=== PATIENT | female | born 1975 | race Caucasian/White ===

== ENCOUNTER 2017-07-19 14:29 | Emergency (ER) | payer OTHER ==
[~2017-07-19] VITALS: Wt 61.2 kg
[~2017-07-19 14:29] MED LIST: AMOXICILLIN500 M2 PO; ANAPROX DS550 MG PO; ATARAX25 MG PO; ATIVAN1 MG PO; CEPHALEXIN500 M1 PO; CLARITIN10 MG PO; CLINDAMYCIN HC300 MG PO; DOXYCYCLINE HY100 M3 PO; FIORICET 325 MG1 TAB PO; FLAGYL500 MG PO; Fioricet 325 MG1 TAB PO; LIDEX0.05% T; MEDROL DOSEPAK4 MG PO; MOTRIN800 MG PO; NAPROSYN500 MG PO; NAPROXEN500 MG PO; NORCO 5-325 TA1 EACH PO; Nizoral 2%15 GM PO; PENICILLIN VK500 MG PO; PERCOCET 325 MG1 TA7 PO; PREDNICOT20 MG PO; PREDNISONE20 M1 PO; Peridex 473 ML473 ML PO; SEPTRA DS 800 M1 TAB PO; TRAMADOL HCL50 MG PO; VICODIN 5/500 505 MG PO; ZOFRAN ODT4 MG SL
[2017-07-19 15:09] LABS: BASO % 0.5 % (0.0-1.0); HEMATOCRIT 39.8 % (37.0-47.0); HEMOGLOBIN 13.3 g/dl (12.0-16.0); LYMPH # 1.3 10*3/uL (1.3-4.4); LYMPH % 31.8 % (27.0-41.0); MEAN CELL VOLUME 92.8 fl (81.0-99.0); MEAN CORPUSCULAR HGB CONC 33.4 g/dl (33.0-37.0); MEAN PLATELET VOLUME 10.4 fl (9.6-12.3); MONO # 0.4 10*3/uL (0.1-1.0); MONO % 10.7 % (3.0-9.0); NEUT # 2.3 10*3/uL (2.3-7.9); PLATELET COUNT AUTOMATED 167 10*3/uL (130-400); RED BLOOD COUNT 4.29 10*6/uL (4.10-5.10); RED CELL DISTRI WIDTH 13.2 % (0-14.5)
[2017-07-19 15:18] LABS: ACT PARTIAL THROMBO TIME 24.3 SECONDS (20.8-31.5)
[2017-07-19 15:24] LABS: ALBUMIN 3.8 gm/dl (3.1-4.5); ALKALINE PHOSPHATASE 92 U/L (45-117); BUN 12 mg/dl (7-24); CHLORIDE 108 mmol/L (98-107); CREATININE 0.62 mg/dL (0.55-1.02); SGOT/AST 17 IU/L (3-35); SGPT/ALT 21 U/L (12-78); SODIUM 141 mmol/L (136-145); TOTAL PROTEIN 7.2 gm/dL (6.4-8.2)
[2017-07-19 15:35] LABS: BILIRUBIN NEGATIVE (NEGATIVE); BLOOD 2+ (NEGATIVE); CLARITY SL CLOUDY (CLEAR); COLOR YELLOW (YELLOW); GLUCOSE NEGATIVE (NEGATIVE); KETONE NEGATIVE (NEGATIVE); LEUKO ESTERASE NEGATIVE (NEGATIVE); NITRITE NEGATIVE (NEGATIVE); PH 5.5 (5.0-9.0); SPECIFIC GRAVITY >= 1.030 (1.005-1.030); UROBILINOGEN 0.2 E.U./dl (0.2-1.0)
[2017-07-19 15:42] LABS: URINE AMPHETAMINES < 1000 (1000ng/ml); URINE BARBITURATES < 200 (200ng/ml); URINE BENZODIAZEPINES < 200 (200ng/ml); URINE CANNABINOIDS (THC) > 50 (50ng/ml); URINE COCAINE < 300 (300ng/ml); URINE METHADONE < 300 (300ng/ml); URINE OPIATES > 300 (300ng/ml)
[2017-07-19 15:43] LABS: BACTERIA 3+; WBC 0-2 wbc/hpf (0-5)
[2017-07-19 15:49] LABS: URINE PHENCYCLIDINE < 25 (25ng/ml)
[2017-07-19 18:51] VITALS: BP 117/75
== END 2017-07-19 18:55 | disposition home or self-care (01) ==
LOC: ED 14:29
PROVIDERS: Physician Assistant
DX: G43.909 Migraine, unspecified, not intractable, without status migrainosus (principal); R82.99 Other abnormal findings in urine; H57.8 Other specified disorders of eye and adnexa; H53.149 Visual discomfort, unspecified; F17.200 Nicotine dependence, unspecified, uncomplicated; Z91.040 Latex allergy status

== ENCOUNTER 2019-04-18 00:19 | Emergency (ER) | payer OTHER ==
[~2019-04-18] VITALS: Ht 157.4 cm; Wt 58.1 kg
[2019-04-18 00:19] VITALS: BP 139/82
[2019-04-18] MEDS ORDERED: VISTARIL50 MG PO (00:37)
[2019-04-18] MEDS ORDERED: TRIDERM454 GM T (00:42)
== END 2019-04-18 00:46 | disposition home or self-care (01) ==
LOC: ED 00:19
DX: L50.9 Urticaria, unspecified (principal); G43.909 Migraine, unspecified, not intractable, without status migrainosus; Z91.041 Radiographic dye allergy status; Z79.2 Long term (current) use of antibiotics; Z79.899 Other long term (current) drug therapy; Z87.891 Personal history of nicotine dependence

== ENCOUNTER 2022-02-06 07:01 | Emergency (ER) | payer OTHER ==
[~2022-02-06] VITALS: Wt 59.0 kg
[~2022-02-06 07:01] MED LIST changes: +TRIDERM454 GM T; +VISTARIL50 MG PO
[2022-02-06 07:11] VITALS: BP 123/82
[2022-02-06 08:04] LABS: BASO % 0.3 % (0.0-1.0); EOS % 0.3 % (1.0-4.0); HEMATOCRIT 33.6 % (37.0-47.0); LYMPH # 0.7 10*3/uL (1.3-4.4); LYMPH % 19.4 % (27.0-41.0); MEAN CELL VOLUME 91.1 fl (81.0-99.0); MEAN CORPUSCULAR HGB 29.8 pg (27.0-31.0); MEAN CORPUSCULAR HGB CONC 32.7 g/dl (33.0-37.0); MEAN PLATELET VOLUME 10.3 fl (9.6-12.3); MONO # 0.5 10*3/uL (0.1-1.0); MONO % 13.1 % (3.0-9.0); NEUT # 2.5 10*3/uL (2.3-7.9); NEUT % 66.6 % (47.0-73.0); PLATELET COUNT AUTOMATED 197 10*3/uL (130-400); RED BLOOD COUNT 3.69 10*6/uL (4.10-5.10); RED CELL DISTRI WIDTH 15.7 % (0-14.5); WHITE BLOOD COUNT 3.8 10*3/uL (4.8-10.8)
[2022-02-06 08:12] LABS: BUN 10 mg/dl (7-24); CHLORIDE 113 mmol/L (98-107); CREATININE 0.71 mg/dL (0.55-1.02); POTASSIUM 3.7 mmol/L (3.5-5.1); SODIUM 143 mmol/L (136-145)
[2022-02-06 08:13] LABS: ACT PARTIAL THROMBO TIME 30.3 SECONDS (20.0-32.1)
[2022-02-06 08:15] LABS: CPK 50 U/L (26-192)
== END 2022-02-06 09:54 | disposition home or self-care (01) ==
LOC: ED 07:01
PROVIDERS: Family Medicine
DX: S09.90XA Unspecified injury of head, initial encounter (principal); F17.200 Nicotine dependence, unspecified, uncomplicated; Z90.89 Acquired absence of other organs; Z98.51 Tubal ligation status; Z91.040 Latex allergy status; W22.8XXA Striking against or struck by other objects, initial encounter; Y93.89 Activity, other specified; Y92.89 Other specified places as the place of occurrence of the external cause; Y99.8 Other external cause status

== ENCOUNTER 2024-03-18 14:21 | Emergency (ER) | payer OTHER ==
[~2024-03-18] VITALS: Wt 59.0 kg
[2024-03-18] MEDS ORDERED: Lactated Ringer's Solution 1,000 ML IV ONE (14:45)
[2024-03-18 14:50] LABS: BASO # 0.1 10*3/uL (0.0-0.1); BASO % 0.6 % (0.0-1.0); EOS # 0.3 10*3/uL (0.0-0.4); EOS % 2.5 % (1.0-4.0); HEMATOCRIT 36.5 % (37.0-47.0); LYMPH % 18.6 % (27.0-41.0); MEAN CELL VOLUME 89.5 fl (81.0-99.0); MEAN CORPUSCULAR HGB 30.6 pg (27.0-31.0); MEAN CORPUSCULAR HGB CONC 34.2 g/dl (33.0-37.0); MEAN PLATELET VOLUME 9.8 fl (9.6-12.3); MONO # 0.6 10*3/uL (0.1-1.0); MONO % 5.8 % (3.0-9.0); NEUT # 7.8 10*3/uL (2.3-7.9); PLATELET COUNT AUTOMATED 322 10*3/uL (130-400); RED BLOOD COUNT 4.08 10*6/uL (4.10-5.10); RED CELL DISTRI WIDTH 13.4 % (0-14.5); WHITE BLOOD COUNT 10.8 10*3/uL (4.8-10.8)
[2024-03-18 15:02] LABS: ACT PARTIAL THROMBO TIME 25.6 SECONDS (20.0-32.1)
[2024-03-18 15:09] LABS: BUN 12 mg/dl (9-23); CHLORIDE 108 mmol/L (98-107); POTASSIUM 3.3 mmol/L (3.4-5.1)
[2024-03-18] MEDS ORDERED: MORPHINE Sulfate 2 MG/ML SYR IV ONE ×2 (15:25→17:05)
[2024-03-18] MEDS ORDERED: POTASSIUM CHLORIDE 20 MEQ TAB PO ONE (15:30)
[2024-03-18 17:10] VITALS: BP 138/79
== END 2024-03-18 17:20 | disposition short-term general hospital (02) ==
LOC: ED 14:21
PROVIDERS: Internal Medicine
DX: T24.212A Burn of second degree of left thigh, initial encounter (principal); T24.222A Burn of second degree of left knee, initial encounter; T31.11 Burns involving 10-19% of body surface with 10-19% third degree burns; R10.2 Pelvic and perineal pain; Z91.040 Latex allergy status; Z90.89 Acquired absence of other organs; Z98.51 Tubal ligation status; X12.XXXA Contact with other hot fluids, initial encounter; Y93.89 Activity, other specified; Y92.000 Kitchen of unspecified non-institutional (private) residence as the place of occurrence of the external cause; Y99.8 Other external cause status

== ENCOUNTER 2024-03-22 10:16 | Emergency (ER) | payer OTHER ==
[~2024-03-22] VITALS: Ht 157.4 cm; Wt 57.6 kg
[2024-03-22 10:28] VITALS: BP 123/76
[2024-03-22] MEDS ORDERED: Acetaminophen/Oxycodone Hydr 7.5 MG/325 MG TABLET PO ONE (11:55)
[2024-03-22] MEDS ORDERED: predniSONE 20 MG TAB PO ONE (11:55)
[2024-03-22] MEDS ORDERED: PREDNISONE20 M1 PO (12:36)
== END 2024-03-22 12:37 | disposition home or self-care (01) ==
LOC: ED 10:16
DX: T24.212A Burn of second degree of left thigh, initial encounter (principal); T31.0 Burns involving less than 10% of body surface; Z91.040 Latex allergy status; Z90.89 Acquired absence of other organs; Z98.51 Tubal ligation status; X08.8XXA Exposure to other specified smoke, fire and flames, initial encounter; Y93.89 Activity, other specified; Y92.89 Other specified places as the place of occurrence of the external cause; Y99.8 Other external cause status

== ENCOUNTER 2024-03-24 04:49 | Emergency (ER) | payer OTHER ==
[~2024-03-24] VITALS: Ht 157.4 cm; Wt 57.6 kg
[2024-03-24 04:59] VITALS: BP 136/73
== END 2024-03-24 10:15 | disposition short-term general hospital (02) ==
LOC: ED 04:49
DX: T24.212A Burn of second degree of left thigh, initial encounter (principal); Z91.040 Latex allergy status; Z79.2 Long term (current) use of antibiotics; Z79.899 Other long term (current) drug therapy; Z98.890 Other specified postprocedural states; Z90.89 Acquired absence of other organs; X12.XXXA Contact with other hot fluids, initial encounter; Y93.89 Activity, other specified; Y92.89 Other specified places as the place of occurrence of the external cause; Y99.8 Other external cause status